=== PATIENT | male | born 1955 | race Two or more races ===

== ENCOUNTER 2019-12-06 12:00 | Inpatient (IN) | payer MEDICAID ==
[~2019-12-06] VITALS: Ht 170.2 cm; Wt 86.6 kg
[~2019-12-06 12:00] MED LIST: ASPIRIN81 MG ORAL; ATORVASTATIN CA40 MG ORAL; FLOMAX0.4 MG ORAL; IBUPROFEN600 MG ORAL; LANTUS SOL100 UNIT/1 SUBQ; LEVAQUIN500 MG ORAL; LEVEMIR FL100 UNIT/1 SUBQ; NEURONTIN300 MG ORAL; NOVOLOG100 UNITS1 SUBQ; PRINIVIL20 MG ORAL; TRAMADOL HCL50 MG ORAL
[2019-12-06 12:05] VITALS: BP 163/81
[2019-12-06] MEDS ORDERED: Meclizine 25mg tab ORAL ONE (12:15)
[2019-12-06 12:33] LABS: ANION GAP 9 mmol/L (5-15); BLOOD UREA NITROGEN 35 mg/dL (7-18); CALCIUM 8.8 MG/DL (8.5-10.1); CARBON DIOXIDE 25 MMOL/L (21-32); CHLORIDE 100 MMOL/L (98-107); CREATININE 1.9 MG/DL (0.55-1.30); POTASSIUM 4.2 MMOL/L (3.5-5.1); SODIUM 134 MMOL/L (136-145)
[2019-12-06 12:43] LABS: ALANINE AMINOTRANSFERASE 28 U/L (12-78); ALBUMIN 3.3 G/DL (3.4-5.0); ALBUMIN/GLOBULIN RATIO 0.7 (1.0-2.7); ALKALINE PHOSPHATASE 138 U/L (46-116); ASPARTATE AMINO TRANSFERASE 19 U/L (15-37); BILIRUBIN,TOTAL 0.3 MG/DL (0.2-1.0)
[2019-12-06 12:45] LABS: BASOPHILS % (AUTO) 0.5 % (0.0-2.0); EOSINOPHILS % (AUTO) 1.1 % (0.0-3.0); HEMATOCRIT 36.9 % (42.0-52.0); HEMOGLOBIN 12.3 G/DL (14.2-18.0); LYMPHOCYTES % (AUTO) 23.4 % (20.0-45.0); MEAN CORPUSCULAR VOLUME 91 FL (80-99); MONOCYTES % (AUTO) 10.4 % (1.0-10.0); NEUTROPHILS % (AUTO) 64.6 % (45.0-75.0); PLATELET COUNT 352 K/UL (150-450); RED BLOOD COUNT 4.03 M/UL (4.70-6.10); RED CELL DISTRIBUTION WIDTH 13.8 % (11.6-14.8); WHITE BLOOD COUNT 10.5 K/UL (4.8-10.8)
--- NOTE | 2019-12-06 13:01 | Emergency Room Report ---
History of Present Illness General Chief Complaint: Dizziness Source: Patient, EMS Present Illness HPI This patient states that for the past 2 days he has had multiple episodes of lightheadedness. He states that every time he stands up or sits down he becomes lightheaded and feels like he is going to pass out. He states he is also been getting intermittent chest pain for the past couple days. I did review his chart and he had tested positive for COVID-19 at that time. He denies cough or congestion. Denies fever or chills. He denies nausea or vomiting. He has no other complaints. Allergies: Coded Allergies: No Known Allergies (Unverified , 04/27/16) COVID-19 Screening Contact w/high risk pt: No Recent Travel to affected area: No Experienced COVID-19 symptoms?: No COVID-19 Testing performed PIPE OR STEAM FITTER FURNACE INSTALLER: No - UNK Patient History Past Medical History: see triage record, DM, HTN, seizures Social History: Denies: smoking, alcohol use, drug use Reviewed Nursing Documentation: PMH: Agreed; PSxH: Agreed Nursing Documentation-PMH Hx Hypertension: Yes Hx Diabetes: Yes Hx Seizures: Yes Review of Systems All Other Systems: negative except mentioned in HPI Physical Exam Vital Signs Date Time Temp Pulse Resp B/P (MAP) Pulse Ox O2 Delivery O2 Flow Rate FiO2 12/06/19 11:51 98.2 68 16 132/84 (100) 99 Room Air Sp02 EP Interpretation: reviewed, normal General Appearance: no apparent distress, alert, GCS 15, non-toxic Head: normocephalic, atraumatic Eyes: bilateral eye normal inspection, bilateral eye PERRL ENT: hearing grossly normal, normal pharynx, no angioedema, normal voice Neck: full range of motion, supple/symm/no masses Respiratory: chest non-tender, lungs clear, normal breath sounds, no respiratory distress, no retraction, no accessory muscle use, speaking full sentences Cardiovascular #1: regular rate, rhythm, no edema Gastrointestinal: normal bowel sounds, non tender, soft, non-distended, no guarding, no rebound Rectal: deferred Musculoskeletal: back normal, normal range of motion, gait/station normal, non- tender Neurologic: alert, motor strength/tone normal, oriented x3, sensory intact, responsive, speech normal Psychiatric: judgement/insight normal, memory normal, mood/affect normal, no suicidal/homicidal ideation Skin: no rash, normal color Medical Decision Making Diagnostic Impression: Primary Impression: Pre-syncope ER Course Patient presents with presyncope. He has a history of COVID-19 but today his rapid COVID 19 is negative. Patient is well-appearing overall and laboratory evaluation is at his baseline. I did consider that after COVID-19 some people have been coagulopathic. However, the patient's creatinine is 1.9. Patient had no respiratory symptoms. Therefore, from the emergency department I decided not to obtain a CTA of the chest as I did not feel that it was urgent. EKG shows normal sinus rhythm. The patient was stable with normal oxygen saturations throughout his ED course. Troponin is negative. I will admit this patient for further work-up of his presyncope. He may need to undergo VQ scan to rule out PE or possibly undergo the CT chest. Regardless, the patient is admitted for further monitoring and further evaluation and treatment. Laboratory Tests Test 12/06/19 12:04 White Blood Count 10.5 K/UL (4.8-10.8) Red Blood Count 4.03 M/UL (4.70-6.10) L Hemoglobin 12.3 G/DL (14.2-18.0) L Hematocrit 36.9 % (42.0-52.0) L Mean Corpuscular Volume 91 FL (80-99) Mean Corpuscular Hemoglobin 30.5 PG (27.0-31.0) Mean Corpuscular Hemoglobin Concent 33.3 G/DL (32.0-36.0) Red Cell Distribution Width 13.8 % (11.6-14.8) Platelet Count 352 K/UL (150-450) Mean Platelet Volume 6.5 FL (6.5-10.1) Neutrophils (%) (Auto) 64.6 % (45.0-75.0) Lymphocytes (%) (Auto) 23.4 % (20.0-45.0) Monocytes (%) (Auto) 10.4 % (1.0-10.0) H Eosinophils (%) (Auto) 1.1 % (0.0-3.0) Basophils (%) (Auto) 0.5 % (0.0-2.0) Sodium Level 134 MMOL/L (136-145) L Potassium Level 4.2 MMOL/L (3.5-5.1) Chloride Level 100 MMOL/L (98-107) Carbon Dioxide Level 25 MMOL/L (21-32) Anion Gap 9 mmol/L (5-15) Blood Urea Nitrogen 35 mg/dL (7-18) H Creatinine 1.9 MG/DL (0.55-1.30) H Estimated Glomerular Filtration Rate 35.9 mL/min (>60) Glucose Level 127 MG/DL (74-106) H Calcium Level 8.8 MG/DL (8.5-10.1) Total Bilirubin 0.3 MG/DL (0.2-1.0) Aspartate Amino Transferase (AST) 19 U/L (15-37) Alanine Aminotransferase (ALT) 28 U/L (12-78) Alkaline Phosphatase 138 U/L (46-116) H Troponin I 0.000 ng/mL (0.000-0.056) Total Protein 7.8 G/DL (6.4-8.2) Albumin 3.3 G/DL (3.4-5.0) L Globulin 4.5 g/dL Albumin/Globulin Ratio 0.7 (1.0-2.7) L Microbiology Date/Time Source Procedure Growth Status 12/06/19 13:15 Nasopharynx SARS-CoV-2 RdRp Gene Assay - Final Complete EKG Diagnostic Results Rate: normal Rhythm: NSR ST Segments: no acute changes Rhythm Strip Diag. Results EP Interpretation: yes Rate: 60's Rhythm: NSR, no PVC's, no ectopy Chest X-Ray Diagnostic Results Chest X-Ray Diagnostic Results : Chest X-Ray Ordered: Yes # of Views/Limited/Complete: 1 View Indication: Other EP Interpretation: Yes Interpretation: no consolidation, no effusion, no pneumothorax, no acute cardiopulmonary disease Impression: No acute disease Electronically Signed by: Ana Roe DO CT/MRI/US Diagnostic Results CT/MRI/US Diagnostic Results : Imaging Test Ordered: CT head Impression Pending at the time of this time. See official report in electronic medical record. Last Vital Signs Date Time Temp Pulse Resp B/P (MAP) Pulse Ox O2 Delivery O2 Flow Rate FiO2 12/06/19 12:08 64 15 Room Air 12/06/19 12:05 98.2 163/81 100 Disposition: ADMITTED INPATIENT Condition: Stable Referrals: NOT CHOSEN IPA/MD,REFERRING (PCP) Ana Roe DO Dec 06, 2019 13:01
[2019-12-06 14:16] LABS: APPEARANCE,URINE CLEAR; BILIRUBIN, URINE NEGATIVE (NEGATIVE); GLUCOSE, URINE (UA) NEGATIVE (NEGATIVE); KETONES,URINE NEGATIVE (NEGATIVE); LEUKOCYTE ESTERASE ,URINE 2+ (NEGATIVE); NITRITE,URINE NEGATIVE (NEGATIVE); PH,URINE 6 (4.5-8.0); PROTEIN,URINE 1+ (NEGATIVE); UROBILINOGEN,URINE NORMAL MG/DL (0.0-1.0)
[2019-12-06 14:24] LABS: COLOR,URINE YELLOW
--- NOTE | 2019-12-06 15:04 | Diagnostic Imaging Report ---
Indication: Vertigo, dizziness Technique: Continuous helical CT scanning of the head was performed utilizing automated exposure control without intravenous contrast material. Axial and coronal reconstructions were obtained. Comparison: None CT dose: Total DLP 1018.8 mGycm; CTDI vol 53.4 mGy Findings: There is no acute intracranial hemorrhage, mass effect or cortical edema. There is no shift the midline structures. The ventricles, cisterns and sulci are mildly prominent consistent with mild atrophy. Mild periventricular hypoattenuation is seen, a nonspecific finding. There are atherosclerotic vascular calcifications. Mild bilateral basal ganglia calcifications are noted. Mastoid air cells are clear. There are some prostate secretions in the right sphenoid sinus and partial opacification of some bilateral ethmoid air cells. There is no acute skull fracture. IMPRESSION: No evidence of acute intracranial hemorrhage, mass effect or cortical edema. MRI may be obtained for more sensitive evaluation as clinically indicated. Mild nonspecific periventricular hypoattenuation suggestive of chronic ischemic microvascular changes. Paranasal sinus disease as above with findings which may suggest mild acute sinusitis of the right sphenoid sinus. The CT scanner at [facility] is accredited by the [employer] and the scans are performed using protocols designed to limit radiation exposure to as low as reasonably achievable to attain images of sufficient resolution adequate for diagnostic evaluation.
[2019-12-06 15:18] VITALS: BP 120/65
--- NOTE | 2019-12-06 15:50 | Diagnostic Imaging Report ---
Indication: Shortness of breath Technique: XRAY Chest 1v Comparison: 11/17/2019 Findings: Heart size and mediastinal contours are within normal limits for AP technique and stable compared to prior exam. There is no focal airspace consolidation, pneumothorax or pleural effusion. Osseous structures demonstrate no acute abnormality. Impression: No radiographic evidence of acute cardiopulmonary disease.
--- NOTE | 2019-12-06 16:30 | Diagnostic Imaging Report ---
Indication: Abdominal pain Technique: Noncontrast CT of the abdomen and pelvis utilizing automated exposure control. Axial, sagittal and coronal reformats presented. CT dose: Total DLP 500 mGycm; CTDI vol 8.7 mGy Comparison: None Findings: Please note that evaluation of the abdominal and pelvic viscera and vascular structures is limited without the use of intravenous and oral contrast. Within these limitations the following observations are made: Imaged lung bases are without focal consolidation, pleural effusion or pneumothorax. There are minimal dependent atelectatic changes in the lung bases. Partially imaged heart is normal in size. Coronary arterial and aortic valvular calcifications partially visualized. No pericardial effusion. There is cholelithiasis. No CT evidence to suggest acute cholecystitis. No appreciable biliary ductal dilatation. Noncontrast evaluation of the liver is unremarkable. Noncontrast evaluation of the spleen, adrenal glands and pancreas unremarkable. No discrete peripancreatic inflammatory changes or fluid collections. Kidneys are symmetric in size. Nonspecific bilateral perinephric stranding is seen. There is no urinary tract stone or hydronephrosis. Bladder is mildly distended but otherwise unremarkable. Prostate does not appear significantly enlarged. There is no free intraperitoneal air or fluid. There is colonic diverticulosis without evidence to suggest acute diverticulitis. Portions of the right colon are interposed anterior to the liver (Chilaiditi sign). There is no evidence of small bowel obstruction. Appendix is normal in caliber though no periappendiceal inflammatory changes. There is a small fat-containing umbilical hernia. The abdominal aorta is normal in caliber with scattered atherosclerotic calcifications. There are multilevel degenerative changes of the spine. No acute fracture identified. IMPRESSION: Limited exam without intravenous and oral contrast. Within these limitations: * Cholelithiasis without CT evidence to suggest acute cholecystitis. * Diverticulosis without evidence of acute diverticulitis. * Nonspecific bilateral perinephric stranding without urinary tract stone or hydronephrosis. * Coronary arterial calcifications partially visualized. Additional incidental findings as above. The CT scanner at [facility] is accredited by the [employer] and the scans are performed using protocols designed to limit radiation exposure to as low as reasonably achievable to attain images of sufficient resolution adequate for diagnostic evaluation.
[2019-12-06] MEDS ORDERED: cefTRIAXone 1 GM in D5W 55 ML IVPB ONE (16:45)
[2019-12-06] MEDS: traMADol 50mg tab ORAL PRN (18:22)
[2019-12-06] MEDS: Tamsulosin 0.4mg cap ORAL SCH (18:22)
[2019-12-06] MEDS: Miralax 17gm pkt ORAL SCH (18:23)
[2019-12-06 20:00] VITALS: BP 107/62
[2019-12-06] MEDS: Heparin 5000 units/ml inj SUBQ SCH (20:42)
[2019-12-06] MEDS: Atorvastatin 20mg tab ORAL SCH (20:51)
--- NOTE | 2019-12-06 21:00 | History and Physical Report ---
DATE OF ADMISSION: 12/06/2019 CHIEF COMPLAINT AND REASON FOR HOSPITALIZATION: The patient admitted with syncope or near syncope, weakness. HISTORY OF PRESENT ILLNESS: The patient is a 63-year-old male with a history of insulin-dependent diabetes and recent hospitalization at [facility] 11/17/2019 to 11/24/2019 when he presented with weakness, abnormal glucose, positive COVID-19, pyelonephritis and E coli bacteremia. He was stabilized and discharged home. During that admission, he did not have a significant breathing abnormalities but he did have a positive COVID-19. He over the past week has been feeling worse with a sour stomach, abdominal discomfort, breaking out in sweats and dizziness. He apparently went to the commode today and broke out in a sweat, felt dizzy, weak, some nausea and near syncope but he did not completely black out. There was apparently had a possible loss of vision like he was going to black out. He did not check his sugar at that time. He has not noted to have any hypoglycemia. Recently sugars have been . He has required increasing insulin on his last hospitalization. The patient also on a prior hospitalization had some hyponatremia, dehydration, and chronic kidney disease. ALLERGIES: None known. MEDICATIONS: Include aspirin 81 mg daily, atorvastatin 40 mg daily, gabapentin 300 mg t.i.d., ibuprofen 600 mg t.i.d. p.r.n., Levemir insulin 46 units, NovoLog 14 units t.i.d. plus sliding scale, levofloxacin completed, lisinopril 20 mg daily, tamsulosin 0.4 mg b.i.d., tramadol 50 mg t.i.d. p.r.n. HABITS: He is a nondrinker and nonsmoker. No use of illicit drugs. PAST SURGICAL HISTORY: None. SYSTEM REVIEW: HEAD, EYES, EARS, NOSE, AND THROAT: The patient's hearing is good. PULMONARY: No asthma, TB, chronic cough. CARDIAC: No angina or ND. There is a history of hypertension and hyperlipidemia. GASTROINTESTINAL: He has had some epigastric pain and generalized abdominal discomfort, some nausea as above. GENITOURINARY: No dysuria at this time. He did complete treatment for pyelonephritis. No history of kidney stones. NEUROLOGIC: No history of CVA or seizures. MUSCULOSKELETAL: He has had pain from the thigh to the legs worse on the right than the left. On a prior admission, there was no DVT and likely this is neuropathic pain and diabetic neuropathy. PHYSICAL EXAMINATION: GENERAL: The patient is alert, well-developed man, in no acute distress. VITAL SIGNS: Temperature 98.2, pulse 63, respiratory rate 18, blood pressure 120/55. HEAD, EYES, EARS, NOSE, THROAT: Sclerae are nonicteric. Ocular motions intact in all directions. Oral mucosa moist . NECK: No adenopathy or thyroid enlargement. LUNGS: Clear. HEART: Rhythm is regular. I hear no murmur. ABDOMEN: Soft without organomegaly or masses. EXTREMITIES: No edema, cyanosis, or clubbing. Negative Homans. GENITOURINARY: Penis and testes normal. RECTAL: Deferred. NEUROLOGIC: He is alert and oriented. Cranial nerves are intact. He moves all extremities. PERTINENT LABORATORY DATA: Show sodium 134, potassium 4.2, BUN 35, creatinine 1.9, glucose 127. AST and ALT are normal. Troponin 0. White count 10.5, hemoglobin 12.3. Urinalysis shows 5 to 10 red cells, and 5 to 10 white cells per high-power field, 1+ protein, 3+ blood. He did have a chest x-ray that showed no active disease. CT abdomen and pelvis was done showing cholelithiasis without CT evidence to suggest acute cholecystitis, diverticulosis without evidence of acute diverticulitis, nonspecific bilateral perinephric stranding without urinary tract stone or hydronephrosis, coronary artery calcification. The patient also had a CT brain scan which showed no evidence of acute intracranial hemorrhage, mass effect, or cortical edema, nonspecific periventricular hypoattenuation suggestive of chronic ischemic microvascular changes. IMPRESSION: 1. Syncope or near syncope, the etiology could be vasovagal, orthostatic hypotension, transient hypoglycemia, possible occult gastrointestinal bleeding which is not apparent. 2. Nausea and epigastric pain could be due to ibuprofen and gastritis or possibly peptic ulcer disease, rule out gastrointestinal bleed. 3. 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 4. Rule out hypoglycemia. 5. History of positive COVID-19 test on prior admission, negative rapid test on this admission but some of his symptoms could be a sequela of COVID-19. PLAN: At this time, we will hydrate the patient. Check orthostatic blood pressures. Monitor for any arrhythmias. Recheck his urine culture and given him PPI. I would avoid nonsteroidal anti-inflammatory agents. This has been discussed with the patient in detail with the craniologist. Filiberto Chowdhury M.D. DR: Breanna JOB#: [id number] CC:
[2019-12-06] MEDS: NovoLOG Insulin Flexpen SUBQ SCH ×2 (21:05→21:24)
[2019-12-07] VITALS (8 sets, daily range): BP systolic 100–137; BP diastolic 56–76
[2019-12-07] MEDS: NovoLOG Insulin Flexpen SUBQ SCH ×6 (06:30→20:34)
[2019-12-07 07:32] LABS: ALANINE AMINOTRANSFERASE 25 U/L (12-78); ALBUMIN 2.7 G/DL (3.4-5.0); ALBUMIN/GLOBULIN RATIO 0.7 (1.0-2.7); ALKALINE PHOSPHATASE 114 U/L (46-116); ANION GAP 8 mmol/L (5-15); ASPARTATE AMINO TRANSFERASE 16 U/L (15-37); BILIRUBIN,TOTAL 0.3 MG/DL (0.2-1.0); BLOOD UREA NITROGEN 35 mg/dL (7-18); CALCIUM 8.2 MG/DL (8.5-10.1); CARBON DIOXIDE 25 MMOL/L (21-32); CHLORIDE 105 MMOL/L (98-107); POTASSIUM 4.3 MMOL/L (3.5-5.1); SODIUM 138 MMOL/L (136-145)
[2019-12-07] MEDS: Aspirin Baby 81mg ORAL SCH (08:25)
[2019-12-07] MEDS: Tamsulosin 0.4mg cap ORAL SCH ×2 (08:25→17:37)
[2019-12-07] MEDS: Heparin 5000 units/ml inj SUBQ SCH ×2 (08:28→20:31)
[2019-12-07] MEDS: Miralax 17gm pkt ORAL SCH ×2 (08:28→17:31)
[2019-12-07] MEDS: Lisinopril 20mg tab ORAL SCH (08:29)
[2019-12-07] MEDS: Levemir Flexpen SUBQ SCH (08:45)
[2019-12-07 08:48] LABS: BASOPHILS % (AUTO) 0.8 % (0.0-2.0); EOSINOPHILS % (AUTO) 3.9 % (0.0-3.0); HEMATOCRIT 33.9 % (42.0-52.0); HEMOGLOBIN 11.1 G/DL (14.2-18.0); LYMPHOCYTES % (AUTO) 24.9 % (20.0-45.0); MEAN CORPUSCULAR VOLUME 93 FL (80-99); MONOCYTES % (AUTO) 10.1 % (1.0-10.0); NEUTROPHILS % (AUTO) 60.3 % (45.0-75.0); PLATELET COUNT 299 K/UL (150-450); RED BLOOD COUNT 3.66 M/UL (4.70-6.10); RED CELL DISTRIBUTION WIDTH 13.7 % (11.6-14.8); WHITE BLOOD COUNT 7.5 K/UL (4.8-10.8)
--- NOTE | 2019-12-07 12:58 | General Progress Note ---
Assessment/Plan Problem List: (1) Pyuria ICD Codes: R82.81 - Pyuria SNOMED: 9316845, 557425248 (2) CKD (chronic kidney disease) stage 3, GFR 30-59 ml/min ICD Codes: N18.3 - Chronic kidney disease, stage 3 (moderate) SNOMED: 776355521 (3) COVID-19 ICD Codes: U07.1 - COVID-19 SNOMED: 714865344 (4) Neuropathy associated with endocrine disorder ICD Codes: E34.9 - Endocrine disorder, unspecified; G63 - Polyneuropathy in diseases classified elsewhere SNOMED: 575104523 (5) Nephropathy due to secondary diabetes ICD Codes: E13.21 - Other specified diabetes mellitus with diabetic nephropathy SNOMED: 2114046, 489013738 (6) Gastritis ICD Codes: K29.70 - Gastritis, unspecified, without bleeding SNOMED: 4773772 (7) Pre-syncope ICD Codes: R55 - Syncope and collapse SNOMED: 281693201 Assessment/Plan: possible post covd syndrome, gastritis on ppi, stop nsaia, check stool ob, pyuria, culture pend, recent pyelo, levaquin Subjective Constitutional: Reports: weakness HEENT: Reports: no symptoms Cardiovascular: Reports: no symptoms Respiratory: Reports: no symptoms Gastrointestinal/Abdominal: Reports: abdominal pain Genitourinary: Reports: no symptoms Neurologic/Psychiatric: Reports: weakness Hematologic/Lymphatic: Reports: no symptoms Allergies: Coded Allergies: No Known Allergies (Unverified , 04/27/16) Objective Last 24 Hour Vital Signs Date Time Temp Pulse Resp B/P (MAP) Pulse Ox O2 Delivery O2 Flow Rate FiO2 12/07/19 12:00 72 12/07/19 12:00 97.7 59 20 116/67 (83) 98 12/07/19 09:00 116/67 (83) 117/76 (90) 117/75 (89) 12/07/19 09:00 59 68 80 12/07/19 09:00 Room Air 12/07/19 08:29 106/65 12/07/19 08:00 66 12/07/19 08:00 97.3 64 20 104/58 (73) 99 12/07/19 04:00 96.2 75 17 100/56 (71) 98 12/07/19 04:00 60 12/07/19 00:00 63 12/07/19 00:00 97.1 63 17 111/68 (82) 99 12/06/19 21:00 Room Air 12/06/19 20:00 97.0 64 16 107/62 (77) 98 12/06/19 20:00 64 12/06/19 18:00 59 71 84 12/06/19 17:18 Room Air 12/06/19 15:25 98.2 63 18 120/65 99 Room Air 12/06/19 15:18 98.2 63 18 120/65 99 Room Air Intake and Output 12/06/19 12/07/19 19:00 07:00 Intake Total 240 ml 75 ml Balance 240 ml 75 ml Intake Oral 240 ml IV Total 75 ml # Voids 1 # Bowel Movements 1 Laboratory Tests 12/07/19 06:30: Sodium Level 138, Potassium Level 4.3, Chloride Level 105, Carbon Dioxide Level 25, Anion Gap 8, Blood Urea Nitrogen 35H, Creatinine 2.0H, Estimat Glomerular Filtration Rate 33.8, Glucose Level 81, Calcium Level 8.2L, Total Bilirubin 0.3 , Aspartate Amino Transf (AST/SGOT) 16, Alanine Aminotransferase (ALT/SGPT) 25, Alkaline Phosphatase 114, Troponin I 0.000, C-Reactive Protein, Quantitative < 0.4, Total Protein 6.5, Albumin 2.7L, Globulin 3.8, Albumin/Globulin Ratio 0.7L 12/07/19 08:00: White Blood Count 7.5, Red Blood Count 3.66L, Hemoglobin 11.1L, Hematocrit 33.9L , Mean Corpuscular Volume 93, Mean Corpuscular Hemoglobin 30.3, Mean Corpuscular Hemoglobin Concent 32.7, Red Cell Distribution Width 13.7, Platelet Count 299, Mean Platelet Volume 7.0, Neutrophils (%) (Auto) 60.3, Lymphocytes (% ) (Auto) 24.9, Monocytes (%) (Auto) 10.1H, Eosinophils (%) (Auto) 3.9H, Basophils (%) (Auto) 0.8, Erythrocyte Sedimentation Rate 71H 12/07/19 08:12: POC Whole Blood Glucose 150H Height (Feet): 5 Height (Inches): 7.00 Weight (Pounds): 160 General Appearance: no apparent distress, alert EENT: normal ENT inspection Neck: normal alignment, supple Cardiovascular: regular rhythm Respiratory/Chest: lungs clear, normal breath sounds Abdomen: non tender, soft Edema: no edema noted Arm (L), no edema noted Arm (R), no edema noted Leg (L), no edema noted Leg (R), no edema noted Pedal (L), no edema noted Pedal (R), no edema noted Generalized Neurologic: cement rubber II-XII grossly normal Filiberto Chowdhury MD Dec 07, 2019 12:58
[2019-12-07] MEDS: Acetaminophen 500mg (ES) tab ORAL SCH (17:37)
[2019-12-07] MEDS ORDERED: HUMALOG 75/255 UNIT1 SUBQ (18:25)
[2019-12-07] MEDS ORDERED: LANTUS SOL100 UNIT/1 SUBQ (18:25)
[2019-12-07] MEDS: Atorvastatin 20mg tab ORAL SCH (20:31)
[2019-12-07] MEDS: traMADol 50mg tab ORAL PRN (20:58)
[2019-12-08] VITALS: BP 125/76
[2019-12-08 04:00] VITALS: BP 126/68
[2019-12-08] MEDS: Acetaminophen 500mg (ES) tab ORAL SCH ×2 (06:23→14:30)
[2019-12-08] MEDS: NovoLOG Insulin Flexpen SUBQ SCH ×4 (06:24→11:54)
[2019-12-08 07:08] LABS: ANION GAP 5 mmol/L (5-15); BLOOD UREA NITROGEN 33 mg/dL (7-18); CALCIUM 8.3 MG/DL (8.5-10.1); CARBON DIOXIDE 26 MMOL/L (21-32); CHLORIDE 104 MMOL/L (98-107); POTASSIUM 4.3 MMOL/L (3.5-5.1); SODIUM 134 MMOL/L (136-145)
[2019-12-08 07:17] LABS: BASOPHILS % (AUTO) 0.9 % (0.0-2.0); EOSINOPHILS % (AUTO) 6.5 % (0.0-3.0); HEMATOCRIT 33.6 % (42.0-52.0); MEAN CORPUSCULAR VOLUME 93 FL (80-99); MONOCYTES % (AUTO) 9.2 % (1.0-10.0); NEUTROPHILS % (AUTO) 58.3 % (45.0-75.0); PLATELET COUNT 271 K/UL (150-450); RED BLOOD COUNT 3.61 M/UL (4.70-6.10)
[2019-12-08 07:56] LABS: APPEARANCE,URINE CLEAR; BILIRUBIN, URINE NEGATIVE (NEGATIVE); COLOR,URINE PALE YELLOW; GLUCOSE, URINE (UA) NEGATIVE (NEGATIVE); KETONES,URINE NEGATIVE (NEGATIVE); LEUKOCYTE ESTERASE ,URINE 1+ (NEGATIVE); NITRITE,URINE NEGATIVE (NEGATIVE); PH,URINE 6 (4.5-8.0); PROTEIN,URINE NEGATIVE (NEGATIVE); UROBILINOGEN,URINE NORMAL MG/DL (0.0-1.0)
[2019-12-08 08:00] VITALS: BP 123/72
[2019-12-08] MEDS: Tamsulosin 0.4mg cap ORAL SCH (08:25)
[2019-12-08] MEDS: Aspirin Baby 81mg ORAL SCH (08:26)
[2019-12-08] MEDS: Lisinopril 20mg tab ORAL SCH (08:27)
[2019-12-08] MEDS: Miralax 17gm pkt ORAL SCH (08:28)
[2019-12-08] MEDS: Heparin 5000 units/ml inj SUBQ SCH (08:29)
[2019-12-08] MEDS: Levemir Flexpen SUBQ SCH (08:31)
[2019-12-08 12:00] VITALS: BP 132/69
[2019-12-08] MEDS ORDERED: OMEPRAZOLE40 M1 ORAL (14:05)
[2019-12-08] MEDS ORDERED: ACETAMINOPHEN500 MG ORAL (14:05)
[2019-12-08] MEDS ORDERED: LANTUS SOL100 UNIT/1 SUBQ (14:05)
[2019-12-08 16:00] VITALS: BP 125/72
--- NOTE | 2019-12-09 04:30 | Discharge Summary ---
DATE OF ADMISSION: 12/06/2019 DATE OF DISCHARGE: 12/08/2019 PERTINENT HISTORY: The patient is a 63-year-old man, who was hospitalized here a few weeks ago with COVID-19 mild symptoms, who presents now with an episode of near syncope, feeling weak, and almost passing out and going to the commode, he broke out in a sweat, dizziness, and some nausea. He has been having GI upset questionably secondary to Advil at home. PERTINENT PHYSICAL FINDINGS: GENERAL: The patient is alert and responsive. LUNGS: Clear. HEART: Regular rhythm. ABDOMEN: Soft without organomegaly. EXTREMITIES: No edema. NEUROLOGIC: He is alert and responsive. Oriented. No focal findings. COURSE IN THE HOSPITAL: The patient was hydrated and given supportive care. He was on telemetry. No arrhythmias. CT abdomen and pelvis showed cholelithiasis without cholecystitis, diverticulosis without acute diverticulitis, and nonspecific perinephric stranding. The urinalysis showed a few white cells, but the culture was negative. Brain scan showed no evidence of acute lesion. His sugars in the hospital were generally fairly well controlled. They once went down to 60. On the day prior to discharge, his insulin was reduced. He complained of back pain and bilateral sciatica and was seen by physical therapy. Given instructions for back care. The patient had no further complications. He was discharged home in stable condition. FINAL DIAGNOSES: 1. Syncope or near syncope. Possibly hypoglycemic reaction, possible vasovagal reaction. 2. History of recent COVID-19, which apparently has resolved. 3. Insulin-dependent diabetes. 4. Sciatica. 5. Hypertension. 6. Gait disorder secondary to sciatica. 7. Chronic kidney disease stage 3. 8. Gastritis. DISCHARGE DISPOSITION: Home on a diabetic diet. DISCHARGE MEDICATIONS: Medications per the discharge medication list. His prior to admission medications were resumed, but his Lantus was reduced from 46 to 40 units daily, and I told him to avoid Advil. Intake omeprazole 40 mg daily and he was given a prescription. DISCHARGE INSTRUCTIONS: He is instructed to do back exercises and strengthening for his sciatica and follow up with his PCP. Filiberto Chowdhury M.D. DR: TOSHIA JOB#: [id number] CC:
[2019-12-09] MEDS ORDERED: Levemir Flexpen SUBQ SCH (09:00)
== END 2019-12-08 16:48 | disposition home or self-care (01) | DRG 420 ==
LOC: EDBD 12:00 → EMR 12:20 → EDBEDREQ 13:56 → 2E 14:03 → EDBEDREQ 14:38
DX: E11.649 Type 2 diabetes mellitus with hypoglycemia without coma (principal); R55 Syncope and collapse; E11.21 Type 2 diabetes mellitus with diabetic nephropathy; E11.40 Type 2 diabetes mellitus with diabetic neuropathy, unspecified; Z86.19 Personal history of other infectious and parasitic diseases; K29.70 Gastritis, unspecified, without bleeding; I12.9 Hypertensive chronic kidney disease with stage 1 through stage 4 chronic kidney disease, or unspecified chronic kidney disease; N18.3 Chronic kidney disease, stage 3 (moderate); Z79.82 Long term (current) use of aspirin; Z79.4 Long term (current) use of insulin; K80.20 Calculus of gallbladder without cholecystitis without obstruction; K57.90 Diverticulosis of intestine, part unspecified, without perforation or abscess without bleeding; M54.30 Sciatica, unspecified side
CPT/HCPCS: 36415; 70450; 71045; 74176; 80048; 80053; 81001; 81003; 82270; 82962; 84484; 85025; 85651; 86140; 87081; 87086; 93005; 96360; 99285; J1815; J7030; S5561; U0002